=== PATIENT | male | born 1980 | race Caucasian/White ===

== ENCOUNTER → 2020-05-24 09:40 | Outpatient (CLI) | payer OTHER, SELFPAY ==
[2020-05-24 22:35] LABS: SARS-CoV-2 RNA PCR Negative
== END ==
PROVIDERS: PCP Family Medicine; Visit Provider Physician Assistant
DX: Z20.822 Contact with and (suspected) exposure to COVID-19 (principal); R05 Cough
CPT/HCPCS: C9803; U0003; U0005

== ENCOUNTER 2020-11-10 09:53 | Outpatient (CLI) | payer OTHER, SELFPAY ==
--- NOTE | ~2020-11-10 | CT_ITS ---
EXAMINATION: CT abdomen pelvis w con DATE: 11/10/2020 10:30 INDICATION: Post void dribbling TECHNIQUE: Computed tomography (CT) of the abdomen and pelvis was performed with 100 mL Omnipaque-350 intravenous contrast. Automated exposure control and iterative reconstruction technique were employe d. The dose-length product was 727.12 mGy-cm. COMPARISON: None FINDINGS: Minimal atelectasis at the posterior sulci of the bilateral lower lobes. Heart size is normal. No per icardial or pleural effusion. Small sliding-type hiatal hernia. Liver, gallbladder, spleen, pancreas, bilateral adrenal glands and kidneys are normal. There are few scattered colonic diverticula without adjacent inflammatory change to suggest diverticulitis. Small bowel and appendix are normal. Bladder is normal. There are few small phleboliths in the pelvis. No urolithiasis. No free intraperitoneal g as or fluid. No pathologically enlarged abdominal or pelvic lymphadenopathy. 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 IMPRESSION: 1. Normal kidneys, ureters and bladder. 2. A few colonic diverticula. Otherwise unremarkable CT of the abdomen and pelvis. Reviewed, dictated and finalized at location A. IMPRESSION: 1. Normal kidneys, ureters and bladder. 2. A few colonic diverticula. Otherwise unremarkable CT of the abdomen and pelv is.
== END 2020-11-10 09:54 | disposition home or self-care (01) ==
PROVIDERS: PCP Family Medicine; Visit Provider Urology
DX: N39.43 Post-void dribbling (principal); K44.9 Diaphragmatic hernia without obstruction or gangrene; K57.30 Diverticulosis of large intestine without perforation or abscess without bleeding
CPT/HCPCS: 74177; Q9967